=== PATIENT | female | born 1965 | race Caucasian/White ===

== ENCOUNTER → 2023-03-24 13:23 | Outpatient (BNVA) | payer OTHER, SELFPAY | PROVIDERS: Visit Provider Internal Medicine Nephrology | DX: I10 Essential (primary) hypertension (principal); Z90.5 Acquired absence of kidney; Z52.4 Kidney donor | CPT/HCPCS: 99212 ==

== ENCOUNTER 2023-03-24 13:35 | Outpatient (AMB) | payer OTHER, SELFPAY ==
--- NOTE | 2023-03-24 13:41 | HO.NEPHOV ---
HPI HPI Comments History of Present Illness Details Karlene was seen in the office in follow-up of her hypertension. She had donated one of her kidneys on 2020. She monitors her blood pressure closely. She is tolerating ESTELA-inhibitor. She has no side effects from it. She tries to avoid nonsteroidal anti-inflammatory medications and maintain good hydration. She has no edema, history proteinuria, chest pain, shortness of breath, proximal nocturnal dyspnea, orthopnea. She has not had any medication changes. She feels well. [facility] Medical History (Updated 04/06/23 @ 11:44 by Ryan Lindquist MD) Hypertension Acquired solitary kidney Surgical History (Updated 03/24/23 @ 09:10 by Tierra Menjivar MA) History of kidney donation Family History (Updated 03/24/23 @ 13:48 by Tierra Mnejivar MA) Mother Hypertension Father Hypotension Paternal Aunt Diabetes (Updated 03/24/23 @ 13:46 by Tierra Menjivar MA) Alcohol intake: never Patient Tobacco Use Status: Never used Tobacco Vital Signs 03/24/23 13:42 Height 5 ft 4 in Weight 147 lb BMI 25.2 BP 138/88 Blood Pressure Location Lt brachial Position Sitting Pulse 71 Pulse Source Pulse Oximeter Physical Exam Vital Signs: Last Vital Signs Pulse 71 03/24/23 13:42 BP 138/88 03/24/23 13:42 BMI result Body Mass Index 25.2 Const General: comfortable and no acute distress Orientation/consciousness: patient oriented x3 HEENT Head: Yes normocephalic Mouth: Normal oral and palatal mucosa present Eyes EOM: EOMs intact bilaterally Neck Neck: Yes supple Resp Auscultation: clear to auscultation bilaterally Cardio Jugular venous distension: no JVD Rate: regular rate GI Palpation (GI): Soft to palpation Auscultation: normal bowel sounds General: Yes no CVA tenderness Back/Spine/Pelvis Back: no CVA tenderness Skin General skin exam: no rashes or lesions noted Neuro General: patient oriented x3 and moves all extremities Extrem General: Yes no pedal edema Assessment & Plan Assessment & Plan (1) Acquired solitary kidney: Code(s): Z90.5 - Acquired absence of kidney (2) Hypertension: Code(s): I10 - Essential (primary) hypertension Qualifiers: Hypertension type: primary hypertension Qualified Code(s): I10 - Essential (primary) hypertension Plan Karlene has longstanding hypertension which is very well controlled on monotherapy with lisinopril. She maintains good hydration. She avoids nonsteroidal anti-inflammatory medications. She maintains steady weight. She has no proteinuria. Her renal functions are at baseline. She has no orthostatic symptoms. I did not make any medication changes today. Follow-up lab work and urine studies were ordered. All questions answered. Time spent for retrieval of data, patient encounter and documentation 21 minutes. Orders: Orders Electrolytes 03/24/23 Z90.5 - Acquired absence of kidney, I10 - Essential (primary) hypertension Blood Urea Nitrogen 03/24/23 Z90.5 - Acquired absence of kidney, I10 - Essential (primary) hypertension Creatinine 03/24/23 Z90.5 - Acquired absence of kidney, I10 - Essential (primary) hypertension Protein Creatinine Ratio, Ur 03/24/23 Z90.5 - Acquired absence of kidney, I10 - Essential (primary) hypertension Coding Level of Care Code Est Pt Level 3 (14334) Diagnoses Acquired solitary kidney Z90.5 Primary hypertension I10 Hypertension type: primary hypertension
[2023-03-24 13:42] VITALS: BP 138/88; PULSE 71; BMI 25.2
== END 2023-03-24 14:24 | disposition home or self-care (01) ==
PROVIDERS: PCP Registered Nurse; Visit Provider Internal Medicine Nephrology
DX: Z90.5 Acquired absence of kidney (principal); I10 Essential (primary) hypertension
CPT/HCPCS: 99213

== ENCOUNTER 2024-03-18 13:06 | Outpatient (REF) | payer OTHER, SELFPAY ==
[2024-03-18 16:38] LABS: Anion Gap 16 (12-20); Blood Urea Nitrogen 13 mg/dL (9-16); Carbon Dioxide 22 mmol/L (22-29); Chloride 103 mmol/L (96-108); Estimated Glomerular Filt Rate > 60; Potassium 4.1 mmol/L (3.3-5.1); Sodium 137 mmol/L (135-145)
[2024-03-18 17:06] LABS: Creatinine Urine 66.83 mg/dL; Total Protein Urine Random < 7 mg/dL (<12)
== END 2024-03-18 13:07 | disposition home or self-care (01) ==
LOC: HO.HMGCLDS 13:06
PROVIDERS: Visit Provider Internal Medicine Nephrology
DX: I10 Essential (primary) hypertension (principal); Z90.5 Acquired absence of kidney
CPT/HCPCS: 36415; 80051; 82565; 82570; 84156; 84520

== ENCOUNTER 2024-03-23 09:26 | Outpatient (AMB) | payer OTHER, SELFPAY ==
--- NOTE | 2024-03-23 09:31 | HO.NEPHOV ---
Vital Signs 03/23/24 09:32 Height 5 ft 4 in Weight 145 lb 2 oz BMI 24.9 BP 140/80 H Blood Pressure Location Lt brachial Position Sitting Intake Visit Reasons: Follow-up Kidney Donor-Conf Rug Dry Room Attendant Required: No Accompanied by: Self / Same As Patient Allergies aspirin Allergy (Verified 03/23/24 09:32) Unknown HPI Comments Details: I had the privilege of seeing Karlene in follow up for hypertension and acquired solitary kidney. She was an altruistic kidney donor and had donated her left kidney. She has H/O hypertension which is well controlled on monotherapy. She is on metformin and monitors her BP closely at home. She has no H/O proteinuria. She is in good health and maintains good hydration and avoids NSAID's. She has no family H/O renal disease. Her renal functions are at baseline. Her weight is stable and she feels well [facility] Medical History (Updated 04/06/23 @ 11:44 by yRan Lindquist MD) Hypertension Acquired solitary kidney Surgical History History of kidney donation Family History Mother Hypertension Father Hypotension Paternal Aunt Diabetes Social History Alcohol intake: never Patient Tobacco Use Status: Never used Tobacco Review of Systems Const All systems reviewed & are unremarkable except as noted in HPI and below Physical Exam Vital Signs: Last Vital Signs BP 140/80 H 03/23/24 09:32 BMI result Body Mass Index 24.9 Const General: comfortable and no acute distress Orientation/consciousness: patient oriented x3 HEENT Head: Yes normocephalic Mouth: Normal oral and palatal mucosa present Eyes EOM: EOMs intact bilaterally Neck Neck: Yes supple Resp Auscultation: clear to auscultation bilaterally Cardio Jugular venous distension: no JVD Rate: regular rate GI Palpation (GI): Soft to palpation Auscultation: normal bowel sounds General: Yes no CVA tenderness Back/Spine/Pelvis Back: no CVA tenderness Skin General skin exam: no rashes or lesions noted Neuro General: patient oriented x3 and moves all extremities Extrem General: Yes no pedal edema Results Reviewed Nephrology Results: Sodium 137 mmol/L (135-145) 03/18/24 Potassium 4.1 mmol/L (3.3-5.1) 03/18/24 Chloride 103 mmol/L (96-108) 03/18/24 Carbon Dioxide 22 mmol/L (22-29) 03/18/24 BUN 13 mg/dL (9-16) 03/18/24 Creatinine 0.89 mg/dL (0.5-1.4) 03/18/24 Urine Creatinine 66.83 mg/dL 03/18/24 Protein/Creatinin Ratio TNP 03/18/24 Assessment & Plan Assessment & Plan (1) Acquired solitary kidney: Code(s): Z90.5 - Acquired absence of kidney Category: Medical (2) Hypertension: Code(s): I10 - Essential (primary) hypertension Category: Medical Qualifiers: Hypertension type: primary hypertension Qualified Code(s): I10 - Essential (primary) hypertension Plan Was an altruistic kidney donor who donated her left kidney. Has no proteinuria. On ACEI. BP at goal. Volume status optimal. Weight stable. Could consider switching metformin to low dose SGLTi. Maintains good hydration and avoids NSAID's. I did not make any medication changes. F/U labs ordered in a year. Answered all questions Orders: Orders Protein Creatinine Ratio, Ur 1 Year I10 - Essential (primary) hypertension, Z90.5 - Acquired absence of kidney Creatinine 1 Year I10 - Essential (primary) hypertension, Z90.5 - Acquired absence of kidney Blood Urea Nitrogen 1 Year I10 - Essential (primary) hypertension, Z90.5 - Acquired absence of kidney Electrolytes 1 Year I10 - Essential (primary) hypertension, Z90.5 - Acquired absence of kidney Coding Level of Care Code Est Pt Level 4 (07261) Diagnoses Acquired solitary kidney Z90.5 Primary hypertension I10 Hypertension type: primary hypertension
[2024-03-23 09:32] VITALS: BP 140/80; BMI 24.9
== END 2024-03-23 09:59 | disposition home or self-care (01) ==
PROVIDERS: PCP Registered Nurse; Visit Provider Internal Medicine Nephrology
DX: I10 Essential (primary) hypertension (principal); Z90.5 Acquired absence of kidney
CPT/HCPCS: 99214

== ENCOUNTER → 2024-03-23 09:26 | Outpatient (BNVA) | payer OTHER, SELFPAY | PROVIDERS: PCP Registered Nurse; Visit Provider Internal Medicine Nephrology | DX: I10 Essential (primary) hypertension (principal); Z90.5 Acquired absence of kidney; Z79.84 Long term (current) use of oral hypoglycemic drugs; Z79.899 Other long term (current) drug therapy | CPT/HCPCS: 99212 ==

== ENCOUNTER 2025-04-18 13:05 | Outpatient (REF) | payer OTHER, SELFPAY ==
[2025-04-18 16:51] LABS: Anion Gap 13 (12-20); Blood Urea Nitrogen 15 mg/dL (9-16); Carbon Dioxide 27 mmol/L (22-29); Chloride 100 mmol/L (96-108); Estimated Glomerular Filt Rate > 60; Potassium 4.2 mmol/L (3.3-5.1); Sodium 136 mmol/L (135-145)
[2025-04-18 17:02] LABS: Total Protein Urine Random < 7 mg/dL (<12)
--- OUTSIDE RECORDS SUMMARY | 2025-04-18 17:20 | XMS_ITS | Clinical Summary ---
Author Organization [facility] Address [address] [place] [address] [place] [phone] Phone Care Team Providers Care Model And Pattern Supervisor Name Role Phone Gregory Ortega MD Primary Care Pro vider Allergies Active Allergy Reactions Criticality Noted Date Comments Aspirin Other (See Comments) 11/09/2020 Active Problems Problem Noted Date Diagnosed Date Donor of kidney for transplant 11/15/2020 Essential hypertension 11/09/2020 Immunizations Immunization Administration Dates Next Due COVID-19 (Pre-03/02) Starr Vaccine, [id number], P F 08/17/2020 Influenza Quadrivalent Preservative Free IM 09/2018 Social History Tobacco Use Types Packs/Day Years Used Date Smoking Tobacco: Never Assessed Education Answer Date Recorded Are you interested in more education? Not on chan e 09/06/2022 Are you concerned about learning? Not on file 09/06/2022 No 09/06/2022 No 09/06/2022 Digital Access Answer Date Recorded No 10/05/2022 No 10/05/2022 No 10/05/2022 Reliable internet access at home? Not on file 10/05/2022 Device with a working camera? Not on file Comments Unknown Sex and Gender Information Value Date Recorded Sex Assigned at Not on file Legal Sex Female 8:29 AM EDT Gender Identity Not on file Sexual Orientation Not on file Last Filed Vital Signs Vital Sign Reading Time Taken Comments Blood Pressure 118/82 11/29/2020 8:51 AM EDT Pulse 88 11/29/2020 8:51 AM EDT Temperature 36.7 C (98 F) 11/29/2020 8:51 AM EDT Respiratory Rate 16 11/29/2020 8:51 AM EDT Oxygen Saturation 98% 11/29/2020 8:51 AM EDT Inhaled Oxygen Concentration - - Weight - - Height - - Body Mass Index - - Plan of Treatment Health Maintenance Due Date Last Done Comments Adult Td,Tdap Booster 1967 BLOOD PRESSURE 1967 LIPID PANEL 1967 DEPRESSION SCREENING 1979 SMOKING Hx and SMOKELESS TOB ACCO SCREENING 01/28/1980 HEPATITIS C SCREENING 1985 HIV ONE-TIME SCREENING (18-6 5 YEARS) 1985 PAP SMEAR 01/28/1988 MAMMOGRAM 2007 COLOGUARD 01/28/2012 COLONOSCOPY 01/28/2012 COLORECTAL CANCER SCREENING 01/28/2012 FIT TEST 01/28/2012 FOBT 01/28/2012 SIGMOIDOSCOPY 01/28/2012 VIRTUAL COLONOSCOPY 01/28/2012 PNEUMOCOCCAL VACCINES (50+ y ears) (1 of 1 - PCV) 2017 ZOSTER VACCINES (1 of 2) 2017 INFLUENZA VACCINE (#1) 2024 03/15/2019 COVID-19 VACCINE (2 - 2024-2 6 season) 2025 08/17/2020 RSV VACCINE (1 - 1-dose 75+ series) 2042 HEPATITIS A VACCINES Aged Out No long er eligible based on patient's age to complete this topic HIB VACCINES Aged Out No longer eligi ble based on patient's age to complete this topic MENINGOCOCCAL VACCINES (ACWY) Aged Out No longer eligible based on patient's age to complete this topic MENINGOCOCCAL VACCINES (B) Aged Out N o longer eligible based on patient's age to complete this topic Medical Devices Not on file Insurance [facility] [employer] [facility] [address] [place] [address] [employer] [address] [place] [address] [employer] [place] [address] [place] [address] [place] [address] [facility] [employer] DIRECT [facility] DIRECT [facility] DIRECT Care Teams Model And Pattern Supervisor Relationship Specialty Start Date End Date Gregory Ortega MD [address] [place] [address] PCP - General Internal Medicine 11/29/20 Additional Source Comments The information contained in this document represents components of the legal health record. It is not the complete legal health record.[facility]
== END 2025-04-18 13:06 ==
LOC: HO.HMGCLDS 13:05
PROVIDERS: PCP Physician Assistant; Visit Provider Internal Medicine Nephrology
DX: I10 Essential (primary) hypertension (principal); Z90.5 Acquired absence of kidney
CPT/HCPCS: 36415; 80051; 82565; 82570; 84156; 84520

== ENCOUNTER 2025-04-26 14:28 | Outpatient (AMB) | payer OTHER, SELFPAY ==
--- NOTE | 2025-04-26 14:54 | HO.NEPHOV ---
Vital Signs 04/26/25 14:57 Height 5 ft 4 in Weight 148 lb 6 oz BMI 25.5 BP 132/80 Blood Pressure Location Lt brachial Position Sitting Pulse 63 Pulse Source Pulse Oximeter Pulse Oximetry (%) 100 Oxygen Delivery Method Room Air Intake Visit Reasons: 1yr follow up w/labs-Conf Entry Level Electrical Engineer Required: No Accompanied by: Self / Same As Patient Allergies aspirin Allergy (Verified 04/26/25 14:57) Unknown HPI Comments Details: I had the privilege of seeing Karlene in follow up for hypertension and acquired solitary kidney. She was an altruistic kidney donor and had donated her left kidney. She has H/O hypertension which is well controlled on monotherapy. She is on metformin. She monitors her BP closely at home. She has no H/O proteinuria. She is in good health and maintains good hydration and avoids NSAID's. She has no family H/O renal disease. Her renal functions are at baseline. Her weight is stable and she feels well [facility] Medical History (Updated 04/06/23 @ 11:44 by Ryan Lindquist MD) Hypertension Acquired solitary kidney Surgical History History of kidney donation Family History Mother Hypertension Father Hypotension Paternal Aunt Diabetes Social History Alcohol intake: never Patient Tobacco Use Status: Never used Tobacco Review of Systems Const All systems reviewed & are unremarkable except as noted in HPI and below Physical Exam Vital Signs: Last Vital Signs Pulse 63 04/26/25 14:57 BP 132/80 04/26/25 14:57 Pulse Ox 100 04/26/25 14:57 Oxygen Delivery Method Room Air 04/26/25 14:57 Const General: comfortable and no acute distress Orientation/consciousness: patient oriented x3 HEENT Head: Yes normocephalic Mouth: Normal oral and palatal mucosa present Eyes EOM: EOMs intact bilaterally Neck Neck: Yes supple Resp Auscultation: clear to auscultation bilaterally Cardio Jugular venous distension: no JVD Rate: regular rate GI Palpation (GI): Soft to palpation Auscultation: normal bowel sounds General: Yes no CVA tenderness Back/Spine/Pelvis Back: no CVA tenderness Skin General skin exam: no rashes or lesions noted Neuro General: patient oriented x3 and moves all extremities Extrem General: Yes no pedal edema Results Reviewed Nephrology Results: Sodium, (135-145) 136 mmol/L 04/18/25 Potassium, (3.3-5.1) 4.2 mmol/L 04/18/25 Chloride, (96-108) 100 mmol/L 04/18/25 Carbon Dioxide, (22-29) 27 mmol/L 04/18/25 BUN, (9-16) 15 mg/dL 04/18/25 Creatinine, (0.5-1.4) 0.85 mg/dL 04/18/25 Urine Creatinine 24.63 mg/dL 04/18/25 Protein/Creatinin Ratio TNP 04/18/25 Assessment & Plan Assessment & Plan (1) Hypertension: Code(s): I10 - Essential (primary) hypertension Category: Medical Qualifiers: Hypertension type: primary hypertension Qualified Code(s): I10 - Essential (primary) hypertension (2) Acquired solitary kidney: Code(s): Z90.5 - Acquired absence of kidney Category: Medical Plan Was an altruistic kidney donor who donated her left kidney. Has no proteinuria. On ACEI. BP at goal. Volume status optimal. Weight stable. Maintains good hydration and avoids NSAID's. I did not make any medication changes. F/U labs ordered in a year. Answered all questions Orders: Orders Creatinine 1 Year I10 - Essential (primary) hypertension, Z90.5 - Acquired absence of kidney Blood Urea Nitrogen 1 Year I10 - Essential (primary) hypertension, Z90.5 - Acquired absence of kidney Electrolytes 1 Year I10 - Essential (primary) hypertension, Z90.5 - Acquired absence of kidney UA and rflx microscopic 1 Year I10 - Essential (primary) hypertension, Z90.5 - Acquired absence of kidney Protein Creatinine Ratio, Ur 1 Year I10 - Essential (primary) hypertension, Z90.5 - Acquired absence of kidney Coding Level of Care Code Est Pt Level 4 (91363) Diagnoses Primary hypertension I10 Hypertension type: primary hypertension Acquired solitary kidney Z90.5
[2025-04-26 14:57] VITALS: BP 132/80; PULSE 63; O2SAT 100; BMI 25.5
--- OUTSIDE RECORDS SUMMARY | 2025-04-26 19:21 | XMS_ITS | Clinical Summary ---
Author Organization [facility] Address [address] [place] [address] [place] [phone] Phone Care Team Providers Care Tipple Repairer Name Role Phone Gregory Ortega MD Primary [...] topic Medical Devices Not on file Insurance [facility] [place] [address] [place] [address] [place] [address] [employer] DIRECT [facility] [employer] [place] [address] [place] [address] [place] [address] [facility] DIRECT [facility] [employer] DIRECT [facility] [employer] DIRECT [facility] DIRECT Care Teams Tipple Repairer Relationship Specialty Start Date End Date Gregory Ortega MD [address] [place] [id number] PCP - General Internal Medicine 11/29/20 Additional Source Comments The information contained in this document represents components of the legal health record. It is not the complete legal health record.[facility]
== END 2025-04-26 15:14 | disposition home or self-care (01) ==
LOC: HO.HKA 14:28
PROVIDERS: PCP Registered Nurse; Visit Provider Internal Medicine Nephrology
DX: I10 Essential (primary) hypertension (principal); Z90.5 Acquired absence of kidney
CPT/HCPCS: 99214

== ENCOUNTER → 2025-04-26 14:28 | Outpatient (BNVA) | payer OTHER, SELFPAY | PROVIDERS: PCP Registered Nurse; Visit Provider Internal Medicine Nephrology | DX: I10 Essential (primary) hypertension (principal); Z90.5 Acquired absence of kidney | CPT/HCPCS: 99212 ==